=== PATIENT | male | born 1940 | race Caucasian/White ===

== ENCOUNTER 2019-05-16 09:31 | Outpatient (CLI) | payer MEDICARE, BC ==
[2019-05-16] VITALS (16 sets, daily range): BP systolic 139–161; BP diastolic 68–94
== END 2019-05-16 23:59 | disposition home or self-care (01) ==
LOC: CARD DIAG 09:31
PROVIDERS: ATTEND Internal Medicine Cardiovascular Disease
DX: R55 Syncope and collapse (principal)
CPT/HCPCS: 93660